=== PATIENT | female | born 1965 | race Caucasian/White ===

== ENCOUNTER 2024-12-30 08:52 | Emergency (ER) | payer BC, SELFPAY ==
[2024-12-30] VITALS (26 sets, daily range): BP systolic 113–134; BP diastolic 73–110; BMI 29.2
[2024-12-30 09:43] LABS: Hematocrit 52.4 % (37.0-47.0); Hemoglobin 18.3 g/dL (12.0-16.0); Mean Corp Hgb Conc. 34.9 g/dL (33.0-37.0); Mean Corpuscular Volume 90.0 fL (81.0-99.0); Nucleated Red Blood Cells % 0 %; Platelet Count 223 10^3/uL (130-400); Red Cell Dist. Width 12.9 % (11.5-14.5)
[2024-12-30 10:04] LABS: Troponin I 0.016 ng/ml
--- NOTE | 2024-12-30 10:04 | ED.GENMED ---
History of Present Illness
<MARKELL Chamberlain - Last Filed: 12/30/24 14:22>
General
Chief Complaint: Cardiac Symptoms
Source: patient
Exam Limitations: none
Time Seen by Provider: 12/30/24 09:32
Nursing documentation reviewed up to this point in time: agreed with
History of Present Illness
History of Present Illness:
Patient is a 59-year-old female with past medical history of mitral valve repair, A-fib, multiple ablations and cardioversions followed by Dr. Ra Hernandez at [facility] in [place] presents to the ER for evaluation. She reports
since yesterday at 7 PM she felt that she might have been in A-fib she has felt short of breath had a headache and felt nausea. She does use Kardia to check her heart rate and she was told she was in sinus tachycardia. Her environmental officer is aware
that she is here and feels that she may need a cardioversion. She is on Xarelto and takes this daily and took her last dose last night. She did not take her losartan or spironolactone yet today.she has not missed a dose of her Xarelto.
Phy Exam
<MARKELL Chamberlain - Last Filed: 12/30/24 14:22>
General Physical Exam
General Presentation: no apparent distress
General age: appears stated age
General Skin: warm and dry
General Habitus: normal
General Mental: alert
General Hydration: appears well hydrated
Cardiovascular Exam
Cardiovascular Exam: no murmur, normal peripheral pulses and tachycardia
Pulmonary Exam
Pulmonary Exam: lungs clear and no respiratory distress
Neurological Exam
Neurological Exam: alert and oriented x3
Musculoskeletal Exam
Musculoskeletal Exam: full ROM
Skin Exam
Skin Exam: normal color and warm/dry
Psychiatric Exam
Psychiatric Exam: normal mood/affect
Course
<MARKELL Chamberlain - Last Filed: 12/30/24 14:22>
Orders/Labs/Results
Orders:
Orders
12/30/24 08:57
Electrocardiogram (*1) Urgent
Reason for Study: Atrial Fibrillation
EKG- Treatment ONCE
12/30/24 09:34
Basic Metabolic Panel Urgent
Complete Blood Count/With Diff Urgent
TSH Reflex To Free T4 Urgent
Troponin I Urgent
12/30/24 10:03
Cardiac Monitoring- Treatment ONCE
IV Insert/Care/Rem.- Treatment PRN
0.9% Sodium Chloride 1000 ml [Nss] 1,000 ml IV BOLUS
Ondansetron Injectable [Zofran] 4 mg IV NOW STA
12/30/24 10:04
Ondansetron Injectable [Zofran] 4 mg .ROUTE .STK-MED ONE
12/30/24 10:11
EKG [Electrocardiogram (*1)] Urgent
Reason for Study: Shortness of Breath
12/30/24 10:13
EKG- Treatment ONCE
12/30/24 10:29
Add On- LAB Urgent
Tests Added?: potassium
12/30/24 11:05
Jczwu-Jhhn-Ryhrbgp Urgent
Comment: ADD ON PER [id number]
Magnesium Urgent
Comment: ADD ON PER [id number]
Potassium Urgent
12/30/24 11:34
Add On- LAB Urgent
Tests Added?: Magnesium
12/30/24 12:25
Propofol [Diprivan] 20 ml .ROUTE .STK-MED
12/30/24 13:27
EKG [Electrocardiogram (*1)] Urgent
Reason for Study: Abnormal EKG
EKG- Treatment ONCE
Abnormal Lab Results
12/30/24 12/30/24
09:34 11:05
WBC 4.7 L 10^3/uL
(4.8-10.8)
RBC 5.82 H 10^6/uL
(4.20-5.40)
Hgb 18.3 H g/dL
(12.0-16.0)
Hct 52.4 H %
(37.0-47.0)
MCH 31.4 H pg
(27.0-31.0)
Monocytes % 10.3 H %
(1.7-9.3)
Glucose 100 H mg/dl
(70-99)
Total Protein 5.8 L g/dl
(6.3-8.2)
12/30/24 09:34
12/30/24 11:05
Vital Signs
Initial and Last Documented VS:
Initial Vital Signs
Temp Pulse Resp BP Pulse Ox
97.9 F 111 20 122/89 99
12/30/24 08:59 12/30/24 08:59 12/30/24 08:59 12/30/24 08:59 12/30/24 08:59
Last Documented Vital Signs
Temp Pulse Resp BP Pulse Ox
97.5 F 59 16 123/78 98
12/30/24 14:03 12/30/24 14:03 12/30/24 14:03 12/30/24 14:03 12/30/24 14:03
Swabber consulted with Physician
Swabber consulted with physician?: Yes
Name of Physician Consulted: DR Nelson
<Kath Nelson, DO - Last Filed: 12/30/24 13:39>
Orders/Labs/Results
Orders:
Orders
12/30/24 08:57
Electrocardiogram (*1) Urgent
Reason for Study: Atrial Fibrillation
EKG- Treatment ONCE
12/30/24 09:34
Basic Metabolic Panel Urgent
Complete Blood Count/With Diff Urgent
TSH Reflex To Free T4 Urgent
Troponin I Urgent
12/30/24 10:03
Cardiac Monitoring- Treatment ONCE
IV Insert/Care/Rem.- Treatment PRN
0.9% Sodium Chloride 1000 ml [Nss] 1,000 ml IV BOLUS
Ondansetron Injectable [Zofran] 4 mg IV NOW STA
12/30/24 10:04
Ondansetron Injectable [Zofran] 4 mg .ROUTE .STK-MED ONE
12/30/24 10:11
EKG [Electrocardiogram (*1)] Urgent
Reason for Study: Shortness of Breath
12/30/24 10:13
EKG- Treatment ONCE
12/30/24 10:29
Add On- LAB Urgent
Tests Added?: potassium
12/30/24 11:05
Mdvdz-Tawp-Xedeppi Urgent
Comment: ADD ON PER [id number]
Magnesium Urgent
Comment: ADD ON PER [id number]
Potassium Urgent
12/30/24 11:34
Add On- LAB Urgent
Tests Added?: Magnesium
12/30/24 12:25
Propofol [Diprivan] 20 ml .ROUTE .STK-MED
12/30/24 13:27
EKG [Electrocardiogram (*1)] Urgent
Reason for Study: Abnormal EKG
EKG- Treatment ONCE
Abnormal Lab Results
12/30/24 12/30/24
09:34 11:05
WBC 4.7 L 10^3/uL
(4.8-10.8)
RBC 5.82 H 10^6/uL
(4.20-5.40)
Hgb 18.3 H g/dL
(12.0-16.0)
Hct 52.4 H %
(37.0-47.0)
MCH 31.4 H pg
(27.0-31.0)
Monocytes % 10.3 H %
(1.7-9.3)
Glucose 100 H mg/dl
(70-99)
Total Protein 5.8 L g/dl
(6.3-8.2)
12/30/24 09:34
12/30/24 11:05
Vital Signs
Initial and Last Documented VS:
Initial Vital Signs
Temp Pulse Resp BP Pulse Ox
97.9 F 111 20 122/89 99
12/30/24 08:59 12/30/24 08:59 12/30/24 08:59 12/30/24 08:59 12/30/24 08:59
Last Documented Vital Signs
Temp Pulse Resp BP Pulse Ox
97.5 F 59 16 123/78 98
12/30/24 14:03 12/30/24 14:03 12/30/24 14:03 12/30/24 14:03 12/30/24 14:03
Procedures
<MARKELL Chamberlain - Last Filed: 12/30/24 14:22>
Moderate Sedation
ASA Risk Score: Class I
Chart and allergies reviewed: Yes
Consent for anesthesia obtained: Yes
Time out completed (validating right patient & procedure): Yes
Moderate Sedation Start Time(when first medication is given): 13:23
History of difficult intubation: No
Airway free of obstruction: Yes
Patient has a gag reflex: Yes
Patient is able to open mouth: Yes
Patient has no dentures: Yes
Patient has no loose teeth: Yes
Medication administered by Provider during Moderate Sedation: IV Propofol (mg)
Total dose administered: 50
Time drug administered: 13:23
Moderate Sedation Procedure End Time: 13:33
<MARKELL Chamberlain - Last Filed: 12/30/24 14:22>
MDM/Problems Addressed
Differential Diagnosis Includes:
A-fib
MDM/Problems Addressed:
Patient is a 59-year-old female with history of A-fib flutter presented for nausea felt like she was in A-fib since 7 PM last night. EKG shows tachycardia appears like A-fib/a flutter heart rate 104.
Stable vital signs. Case discussed with patient's on-call nurse practitioner cardiology at [facility]. Case discussed with ED physician Dr. Nelson.
Patient cardioverted by DR Nelson to normal sinus rhythm Tolerated procedure well.
Repeat EKG sinus bradycardia heart rate 55
1420: Patient is very well-appearing remains in normal sinus rhythm no acute distress will DC home with outpatient followup with her environmental officer.
Chronic conditions affecting care:
afib
<MARKELL Chamberlain - Last Filed: 12/30/24 14:22>
*Pulse Oximetry
SaO2: 97
Oxygen Mode of Delivery: Room air
Patient hypoxic: no
*EKG
Interpreted by ED Provider?: Yes
Interpretation: abnormal
Comparison EKG: changes noted
Heart Rate: 104
Rate: tachycardiac
Rhythm: atrial flutter
*Critical Care Note
Total Time (30-74mins, 75-104mins- exclusive of procedures): Not Applicable
ED Attending Note
<MARKELL Chamberlain - Last Filed: 12/30/24 14:22>
-
Portions of this chart may have been created with voice recognition software.� Occasional wrong word or��sound alike� substitutions may have occurred due to the inherent limitations of voice recognition software.
<Kath Nelson DO - Last Filed: 12/30/24 13:39>
ED Attending Note
Patient seen and examined by attending physician: Yes
I performed the substantive portion of visit, reviewed & personally made and approve the management plan that is documented in note by myself or RAF.: Yes
I performed a history and physical exam of patient and discussed management with resident, I reviewed resident's note and agree with documented findings and plan of care.: Yes
ED Attending Note:
59-year-old female with history of A-fib with multiple ablations and cardioversions in the past, follows at [facility], presenting for concern of atrial fibrillation. Notes that since yesterday evening she has been short of breath with some
nausea, which is symptoms she has had in the past secondary to her A-fib. She has Kardia to check her heart rate, and it was noting that she was in a sinus tachycardia which prompted her to come into the hospital. In discussion with her
environmental officer, felt that she may need a cardioversion. Patient is on Xarelto, notes compliance. Vital signs on arrival significant for tachycardia.
On exam, patient is resting comfortably, no acute distress. Initial EKG is reading a sinus tachycardia, however concern for possible flutter with absence of T waves. EKG repeated, similar findings. Did have EKG interpreted by cardiology, suspect
that it could be A-fib versus a flutter which is consistent with patient's examination and symptoms. Patient otherwise hemodynamically stable. She would prefer to proceed with cardioversion. Patient appropriately consented. Will proceed with
procedural sedation and synchronized cardioversion
Discharge Plan
Departure
Patient Disposition: Home (Routine Discharge)
Date of Disposition: 12/30/24
Time of Disposition: 14:21
Patient with high blood pressure during this ER visit?: Yes
Condition: Fair
Covid-19: Not Applicable
Discharge Problem:
Atrial fibrillation
Instructions: Cardioversion (DC), Atrial fibrillation and atrial flutter - ED (DC), MODERATE SEDATION ADULT, BLOOD PRESSURE
Referrals:
UNKNOWN - PT DOES,NOT KNOW [Family Provider]
Activity Restrictions/Additional Instructions:
Follow-up with your environmental officer in the next several days as needed return if any worsening of symptoms
Interventions
Interventions:
*Risk Screen - Suicide Last Done: 12/30/24 08:59
*General Assessment Last Done: 12/30/24 09:29
*Neglect/Abuse Screening Last Done: 12/30/24 09:40
*ED- Fall Risk Assessment Last Done: 12/30/24 09:29
*ED COVID-19 Vaccine History Last Done: 12/30/24 09:29
*ED Influenza Vaccine History Last Done: 12/30/24 09:29
ED- Pulmonary Assessment Last Done: 12/30/24 09:38
ED- Cardiac Assessment Last Done: 12/30/24 09:38
Discharge Date and Time
Print Language: SAUDI ARABIAN
[2024-12-30] MEDS: NSS 1000 IV (10:05)
[2024-12-30] MEDS: ZOFRAN 4 MG IV (10:05)
[2024-12-30 10:22] LABS: Blood Urea Nitrogen 14 mg/dl (7-17); Calcium 9.7 mg/dl (8.4-10.2); Carbon Dioxide 24 mmol/L (22-30); Chloride 107 mmol/L (98-107); Estimated Creatinine Clearance 108 ml/min; Glucose 100 mg/dl (70-99); Sodium 136 mmol/L (135-145); eGFR > 60.00
[2024-12-30 11:54] LABS: ALT (SGPT) 13 U/L (0-35); AST (SGOT) 17 U/L (14-36); Albumin 3.5 g/dl (3.5-5.0); Alkaline Phosphatase 48 U/L (38-126); Magnesium 1.9 mg/dl (1.6-2.3); Potassium 4.4 mmol/L (3.5-5.1); Total Protein 5.8 g/dl (6.3-8.2)
== END 2024-12-30 14:51 | disposition home or self-care (01) ==
LOC: EMR 08:52
PROVIDERS: Emergency Medicine; Nurse Practitioner; EMERGENCY PHYSICIAN Student in an Organized Health Care Education/Training Program
DX: I48.91 Unspecified atrial fibrillation (principal); I48.92 Unspecified atrial flutter; R03.0 Elevated blood-pressure reading, without diagnosis of hypertension; Z79.01 Long term (current) use of anticoagulants
CPT/HCPCS: 99285; 92960; 96374; 96361; 80048; 80076; 83735; 84132; 84443; 84484; 85025; 93005

== ENCOUNTER 2025-01-20 10:02 | Emergency (ER) | payer BC, SELFPAY ==
[2025-01-20] VITALS (16 sets, daily range): BP systolic 93–145; BP diastolic 61–107; BMI 30.9
[2025-01-20 10:57] LABS: Hematocrit 54.6 % (37.0-47.0); Hemoglobin 18.3 g/dL (12.0-16.0); Mean Corp Hgb Conc. 33.5 g/dL (33.0-37.0); Mean Corpuscular Volume 95.3 fL (81.0-99.0); Nucleated Red Blood Cells % 0 %; Platelet Count 237 10^3/uL (130-400); Red Cell Dist. Width 13.0 % (11.5-14.5)
[2025-01-20 11:17] LABS: ALT (SGPT) 16 U/L (0-35); AST (SGOT) 20 U/L (14-36); Albumin 4.3 g/dl (3.5-5.0); Alkaline Phosphatase 56 U/L (38-126); Blood Urea Nitrogen 16 mg/dl (7-17); Calcium 9.5 mg/dl (8.4-10.2); Carbon Dioxide 28 mmol/L (22-30); Chloride 104 mmol/L (98-107); Estimated Creatinine Clearance 92 ml/min; Glucose 92 mg/dl (70-99); Potassium 4.6 mmol/L (3.5-5.1); Sodium 139 mmol/L (135-145); Total Protein 7.0 g/dl (6.3-8.2); eGFR > 60.00
[2025-01-20 11:19] LABS: Troponin I < 0.012 ng/ml
--- NOTE | 2025-01-20 11:23 | ED.GENMED ---
History of Present Illness
General
Chief Complaint: Heart Rate Problem
Source: patient and family
Time Seen by Provider: 01/20/25 10:51
History of Present Illness
History of Present Illness:
This patient is a 59-year-old female with a history of atrial fibrillation, mitral valve repair, currently on Xarelto and compliant with this. She was last seen in the emergency department on December 30 and heart cardioversion done at that time
which was successful. She was feeling well until approximately 4 AM this morning when she awoke with feeling like she is in A-fib again described as increased heart rate, palpitations, headache, nausea, and nonbloody vomiting associated with
dyspnea. She also notes mild chest 'pressure' currently. She states that for at least the last several months she has occasional central chest 'pressure', usually at rest, nonexertional, lasting a few minutes and then fully resolving. Of note,
patient has a loop recorder in place.
Past History
Past History
ED Past Medical History: Other (A-fib, migraines, endometriosis)
ED Past Surgical History: Other (Ablation, loop recorder, mitral valve repair, PFA)
Social History
Drug: None
Phy Exam
Physical Exam
Physical Exam:
GENERAL: Alert , in no apparent distress
EYE: pupils equal and reactive
NECK: Supple, no significant adenopathy.
ENT: o/p clr, mmm.
CARDIAC: Irregularly, tachycardic
LUNGS: Clear breath sounds bilaterally, no acute respiratory distress, no wheezes/rales/rhonchi
ABDOMEN: Soft, without focal tenderness, no r/g, no cvat
NEUROLOGICAL: Alert and oriented, no focal neuro deficits
SKIN: Warm and dry, skin intact.
MUSCULOSKELETAL: No edema, well perfused.
PSYCH: Normal and appropriate interaction.
Course
Orders/Labs/Results
Orders:
Orders
01/20/25 10:07
Electrocardiogram (*1) Urgent
Reason for Study: Chest Pain
EKG- Treatment ONCE
01/20/25 10:41
Complete Blood Count/With Diff Urgent
Comprehensive Metabolic Panel Urgent
Troponin I Urgent
01/20/25 11:29
EKG [Electrocardiogram (*1)] Urgent
Reason for Study: Tachycardia
Comment: do not cancel; repeat needed
01/20/25 11:30
EKG- Treatment ONCE
01/20/25 12:56
Acetaminophen [Tylenol] 650 mg .ROUTE .STK-MED ONE
Ondansetron Injectable [Zofran] 4 mg .ROUTE .STK-MED ONE
01/20/25 12:58
Acetaminophen [Tylenol] 650 mg PO NOW STA
01/20/25 12:59
Ondansetron Injectable [Zofran] 4 mg IV NOW STA
01/20/25 13:01
0.9% Sodium Chloride 1000 ml [Nss] 1,000 ml IV BOLUS
01/20/25 14:31
Propofol [Diprivan] 20 ml .ROUTE .STK-MED
01/20/25 14:43
EKG [Electrocardiogram (*1)] Urgent
Reason for Study: Atrial Fibrillation
Comment: post cardioversion
EKG- Treatment ONCE
Abnormal Lab Results
01/20/25
10:41
WBC 4.2 L 10^3/uL
(4.8-10.8)
RBC 5.73 H 10^6/uL
(4.20-5.40)
Hgb 18.3 H g/dL
(12.0-16.0)
Hct 54.6 H %
(37.0-47.0)
MCH 31.9 H pg
(27.0-31.0)
01/20/25 10:41
01/20/25 10:41
Vital Signs
Initial and Last Documented VS:
Initial Vital Signs
Temp Pulse Resp BP Pulse Ox
98.1 F 112 20 137/99 98
01/20/25 10:04 01/20/25 10:04 01/20/25 10:04 01/20/25 10:04 01/20/25 10:04
Last Documented Vital Signs
Temp Pulse Resp BP Pulse Ox
98.1 F 62 18 130/76 98
01/20/25 10:04 01/20/25 15:20 01/20/25 15:20 01/20/25 15:20 01/20/25 15:20
Procedures
Cardioversion
Indication:: Other (AFLUTTER)
Performed by:: ARMAND LUGO MD
Synchronized?: Yes
Energy Used: 200 joules
Number of attempts: 1
Successful?: Yes
ASA Risk Score: Class II
Any reaction or bad outcome to prior sedation/anesthesia?: No history of a reaction
Sedation level to be attained: moderate
Chart and allergies reviewed: Yes
Patient reassessed prior to sedation: Yes
Time out completed at (validating right patient & procedure): 14:55
History of difficult intubation: No
Airway free of obstruction: Yes
Patient has a gag reflex: Yes
Patient is able to open mouth: Yes
Patient has no dentures: Yes
Patient has no loose teeth: Yes
Medication administered by Provider during Moderate Sedation: IV Propofol (mg)
Total dose administered: 5
Time drug administered: 17:41
Start Time: 17:41
Stop Time: 17:51
*Pulse Oximetry
SaO2: 98
Oxygen Mode of Delivery: Room air
Patient hypoxic: no
*Critical Care Note
Total Time (30-74mins, 75-104mins- exclusive of procedures): Not Applicable
Update Note
Update Note:
Patient presents to the Emergency Department with palpitations, headache, nausea, vomiting, chest pressure
Number and Complexity of Problems Addressed at the Encounter
� Chronic conditions affecting care:
� Acute Exacerbation and/or Progression of Chronic Illness:
� Differential Diagnosis includes: But not limited to A-fib, a flutter, SVT, sinus tachycardia, PE, ACS, etc. etc.
Amount and/or Complexity of Data to be Reviewed and Analyzed
� I performed an independent evaluation of and my interpretation is:
EKG:
CT:
Xrays:
Laboratory Studies:HGB 18.3 (elevated), unchanged frrom 10.7, ohterwise unremakrable
Other:
� Review of other/old records reveals:
� Clinical information was obtained by an independent historian:
� Prescriptions/Medications Considered but not given:
� Further testing considered but not performed:
Risk of Complications and/or Morbidity or Mortality of Patient Management
� Social determinants of health affecting care:
� Discussion with other providers (PCP, Hospitalists, Consultants, etc):
� Escalation of care including admission/observation vs risk of discharge considered: Long discussion with patient's freight service inspector, Dr. Ra Hernandez, patient well-known to him. Aware of patient's presentation here including
ECG, labs, symptoms. Of note, patient was cardioverted just 3 weeks ago here at [place]. She has not missed any dose of her anticoagulation. Patient works as a nurse key punch operator and is quite knowledgeable regarding risks of cardioversion, etc.
Ultimately Dr. Hernandez recommended that we cardiovert here and will see patient in close follow-up, recognizes this is a temporary solution, and will work with patient for more long-term solutions. Discussed with patient risks and benefits of
procedural sedation and cardioversion, she understands consent signed. Procedure performed with Dr. Chelsy ALMONTE present, 200 J x 1 attempt, patient now in a normal sinus rhythm.
ED Attending Note
-
Portions of this chart may have been created with voice recognition software.� Occasional wrong word or��sound alike� substitutions may have occurred due to the inherent limitations of voice recognition software.
Discharge Plan
Departure
Patient Disposition: Home (Routine Discharge)
Date of Disposition: 01/20/25
Time of Disposition: 15:11
Patient with high blood pressure during this ER visit?: Yes
Discharge Problem:
PROCEDURAL SEDATION, Atrial flutter
Instructions: Atrial Fibrillation (DC), MODERATE SEDATION ADULT, BLOOD PRESSURE
Referrals:
Riccardo Moran MD [Family Provider, [facility]]
Activity Restrictions/Additional Instructions:
PLEASE CONTACT YOUR COMPOSING ROOM MACHINIST SOON POSSIBLE. IF YOU DEVELOP CHEST PAIN, PALPITATIONS, DIZZINESS, FEVER, VOMITING, OR OTHER WORRISOME SIGNS, GO TO THE ER IMMEDIATELY!
Interventions
Interventions:
*Risk Screen - Suicide Last Done: 01/20/25 10:04
*General Assessment Last Done: 01/20/25 10:04
*Neglect/Abuse Screening Last Done: 01/20/25 10:04
*ED- Fall Risk Assessment Last Done: 01/20/25 11:36
*ED COVID-19 Vaccine History Last Done: 01/20/25 11:23
*ED Influenza Vaccine History Last Done: 01/20/25 11:23
*Nursing Disposition Last Done: 01/20/25 15:45
ED- Cardiac Assessment Last Done: 01/20/25 11:36
ED- Pulmonary Assessment Last Done: 01/20/25 11:36
Discharge Date and Time
Discharge Date/Time: 01/20/25 15:46
Print Language: MALTESE
[2025-01-20] MEDS: TYLENOL 650 MG PO (12:59)
[2025-01-20] MEDS: ZOFRAN 4 MG IV (13:00)
[2025-01-20] MEDS: NSS 1000 IV (13:01)
== END 2025-01-20 15:46 | disposition home or self-care (01) ==
LOC: EMR 10:02
PROVIDERS: EMERGENCY PHYSICIAN Emergency Medicine; FAMILY PHYSICIAN Family Medicine
DX: I48.92 Unspecified atrial flutter (principal); I48.91 Unspecified atrial fibrillation; Z79.01 Long term (current) use of anticoagulants
CPT/HCPCS: 99285; 96374; 96361; 92960; 80053; 84484; 85025; 93005